=== PATIENT | male | born 1940 | race Caucasian/White ===

== ENCOUNTER 2020-06-15 01:17 | Outpatient (CLI) | payer MEDICARE, SELFPAY ==
[2020-06-17 20:05] LABS: SARS-CoV-2 RNA PCR Negative
== END 2020-06-15 01:18 | disposition home or self-care (01) ==
LOC: ANHCOVIDDT 01:17
PROVIDERS: PCP Family Medicine; Visit Provider Internal Medicine Gastroenterology
DX: Z01.812 Encounter for preprocedural laboratory examination (principal); Z20.828 Contact with and (suspected) exposure to other viral communicable diseases
CPT/HCPCS: 87635; C9803; U0003

== ENCOUNTER 2020-06-19 01:12 | Outpatient (CLI) | payer MEDICARE, SELFPAY ==
[2020-06-19 18:29] LABS: SARS-CoV-2 RNA PCR Negative
== END 2020-06-19 01:13 | disposition home or self-care (01) ==
LOC: ANHCOVIDDT 01:12
PROVIDERS: PCP Family Medicine; Visit Provider Internal Medicine Gastroenterology
DX: Z01.812 Encounter for preprocedural laboratory examination (principal); Z20.828 Contact with and (suspected) exposure to other viral communicable diseases
CPT/HCPCS: 87635; C9803; U0003

== ENCOUNTER 2020-06-21 04:11 | Day surgery (SDC) | payer MEDICARE, SELFPAY ==
[2020-06-06 10:45] VITALS: BMI 37.5
--- NOTE | 2020-06-17 12:28 | SUR.PREOP ---
Spoke with patient's regarding his pending Covid results. I explained that his Covid test has errored twice and it can only be run one more time and it would not result until late tonight. I explained we would not have the results back before he started his prep and there was a potential that the result would error again resulting in us cancelling his procedure after he prepped. The stated that him prepping and then the procedure cancelling would not make him happy. I explained to her that I would contact the Dr. Matos's office and see if we could get him on the schedule for Wednesday which would mean he would need to have another Covid test tomorrow. The said that would for him. I told her I would contact the office and one of us would call her or her back with the new information.
[2020-06-21 09:33] LABS: Glucose Point of Care 178 (65-105)
[2020-06-21 09:38] VITALS: BP 121/60; PULSE 75; RESP 22; TEMP 36.1; O2SAT 98; BMI 37.0
[2020-06-21] MEDS: LACTATED RINGERS 1,000 ML 150 ML IV CONT (09:47)
--- NOTE | 2020-06-21 10:23 | WPDANESEPPF ---
Anes - Initial Pre Proc Eval Procedure: Operation Date: 06/21/20 10:30 Proposed Procedures p Screening Colonoscopy - Raciel Matos MD Date/Time: 06/21/20 10:23 Surgeon: Raciel Matos MD Pre Op Diagnosis: neoplasm screening Patient Data Age: 80 Gender: M Height: 5 ft 2 in Weight: 91.8 kg Last Vital Signs Temp 97 F L 06/21/20 09:38 Pulse 75 06/21/20 09:38 Resp 22 H 06/21/20 09:38 BP 121/60 06/21/20 09:38 Pulse Ox 98 06/21/20 09:38 Allergies Allergy/AdvReac Type Severity Reaction Status Date / Time No Known Allergies Allergy Verified 06/21/20 09:27 Home Medications Medication Instructions Recorded Confirmed Type allopurinol 100 mg PO DAILY 06/06/20 06/21/20 History amlodipine 5 mg PO DAILY 06/06/20 06/21/20 History atorvastatin 40 mg PO DAILY 06/06/20 06/21/20 History calcitriol 0.25 mcg PO DAILY 06/06/20 06/21/20 History carvedilol 25 mg PO BID 06/06/20 06/21/20 History docusate sodium [Stool Softener] 100 mg PO DAILY 06/06/20 06/06/20 History ergocalciferol (vitamin D2) 1,250 mcg PO WEEKLY 06/06/20 06/21/20 History furosemide 40 mg PO DAILY 06/06/20 06/21/20 History insulin glargine [Lantus Solostar 30 unit SUBCUT QPM 06/06/20 06/21/20 History U-100 Insulin] insulin lispro [Humalog KwikPen 20 unit SUBCUT TID 06/06/20 06/21/20 History Insulin] metolazone 2.5 mg PO DAILY 06/06/20 06/21/20 History multivit with min-folic acid 1 mg PO DAILY 06/06/20 06/21/20 History [Adult One Daily Multivitamin] oxybutynin chloride 10 mg PO DAILY 06/06/20 06/21/20 History polyethylene glycol 3350 [Miralax] 17 g PO DAILY 06/06/20 06/06/20 History Laboratory Tests 06/21/20 09:29 POC Capillary Glucose 178 mg/dl H mg/dl (65-105) Patient hx anesthesia problems: none Family hx anesthesia problems: none [facility] Past Medical History Medical History (Updated 06/21/20 @ 10:23 by Alin Stephen MD) CAD (coronary artery disease) Congestive heart failure (CHF) Diabetes Hypertension SHAKA (obstructive sleep apnea) Social History Social History Smoking packs per day: 1 Smoking cigarettes per day: 20.0 Years smoked: 46 Smoking pack-years: 46.00 Smoking status: Former smoker Tobacco type: cigarettes Alcohol intake: never Living arrangements: with family Spiritual care concerns: No Anes - Eval Final PreProcedure Day of Procedure 06/21/20 10:23 Patient weight: obese Heart: regular rate and rhythm Lungs: clear to auscultation Airway: Mallampati scale class III Neurological: alert and oriented Last oral intake: >/= 8 hours ASA classification: IV Emergent: no Anesthetic plan: proceed Anesthesia type and monitoring: general GIVS and standard monitoring Informed Consent: The patient's anesthetic plan and its attendant risks and benefits were discussed with the patient/family/POA. Questions were solicited and answers provided to the satisfaction of the patient/family/POA.
[2020-06-21 10:47] VITALS: BP 89/53; PULSE 76; RESP 16; O2SAT 95
--- NOTE | 2020-06-21 10:47 | P.HP_ITS ---
History of Present Illness History of Present Illness Consent: Risks, benefits, and alternatives have been discussed and questions answered. Patient agrees to proceed with procedure. Chief complaint: neoplasm screening Narrative: Zay Martin is a 80 year old male With a history of colon cancer [facility] Past Medical History Medical History CAD (coronary artery disease) Congestive heart failure (CHF) Diabetes Hypertension SHAKA (obstructive sleep apnea) Social History Social History Smoking packs per day: 1 Smoking cigarettes per day: 20.0 Years smoked: 46 Smoking pack-years: 46.00 Smoking status: Former smoker Tobacco type: cigarettes Alcohol intake: never Living arrangements: with family Spiritual care concerns: No Meds Home Medications and Allergies Home Medications Medication Instructions Recorded Confirmed Type allopurinol 100 mg PO DAILY 06/06/20 06/21/20 History amlodipine 5 mg PO DAILY 06/06/20 06/21/20 History atorvastatin 40 mg PO DAILY 06/06/20 06/21/20 History calcitriol 0.25 mcg PO DAILY 06/06/20 06/21/20 History carvedilol 25 mg PO BID 06/06/20 06/21/20 History docusate sodium [Stool Softener] 100 mg PO DAILY 06/06/20 06/06/20 History ergocalciferol (vitamin D2) 1,250 mcg PO WEEKLY 06/06/20 06/21/20 History furosemide 40 mg PO DAILY 06/06/20 06/21/20 History insulin glargine [Lantus Solostar 30 unit SUBCUT QPM 06/06/20 06/21/20 History U-100 Insulin] insulin lispro [Humalog KwikPen 20 unit SUBCUT TID 06/06/20 06/21/20 History Insulin] metolazone 2.5 mg PO DAILY 06/06/20 06/21/20 History multivit with min-folic acid 1 mg PO DAILY 06/06/20 06/21/20 History [Adult One Daily Multivitamin] oxybutynin chloride 10 mg PO DAILY 06/06/20 06/21/20 History polyethylene glycol 3350 [Miralax] 17 g PO DAILY 06/06/20 06/06/20 History Allergies Allergy/AdvReac Type Severity Reaction Status Date / Time No Known Allergies Allergy Verified 06/21/20 09:27 Vital Signs Vital Signs - 24 hr 06/21/20 09:38 Temperature 36.1 C L Pulse Rate 75 Respiratory Rate 22 H Blood Pressure 121/60 Pulse Oximetry 98 Exam Resp: Auscultation: clear to auscultation bilaterally Cardio: Rate: regular rate Rhythm: regular rhythm GI: GI Palp: Yes Soft to palpation and No Tenderness to palpation present (GI) Assessment and Plan Assessment and plan (1) Colon cancer screening: Code(s): Z12.11 - Encounter for screening for malignant neoplasm of colon Status: Acute Assessment and Plan: Colonoscopy with possible biopsy or polypectomy or cautery or injection of substances.
[2020-06-21 10:57] VITALS: BP 91/59; PULSE 73; RESP 16; O2SAT 97
[2020-06-21 11:00] VITALS: BP 114/61; PULSE 73; RESP 16; O2SAT 97
[2020-06-21 11:07] VITALS: BP 114/66; PULSE 75; RESP 18; O2SAT 97
[2020-06-21 11:08] LABS: Glucose Point of Care 171 (65-105)
== END 2020-06-21 11:31 | disposition home or self-care (01) ==
PROVIDERS: PCP Internal Medicine; Visit Provider Internal Medicine Gastroenterology
PROC: 0DJD8ZZ Inspection of Lower Intestinal Tract, Via Natural or Artificial Opening Endoscopic (ICD-10-PCS; CPT 45378; principal; 2020-06-21 10:30)
DX: Z12.11 Encounter for screening for malignant neoplasm of colon (principal); D12.4 Benign neoplasm of descending colon; Z85.038 Personal history of other malignant neoplasm of large intestine; Z98.0 Intestinal bypass and anastomosis status; Z90.49 Acquired absence of other specified parts of digestive tract; I25.10 Atherosclerotic heart disease of native coronary artery without angina pectoris; I11.0 Hypertensive heart disease with heart failure; I50.9 Heart failure, unspecified; E11.9 Type 2 diabetes mellitus without complications; G47.33 Obstructive sleep apnea (adult) (pediatric); Z87.891 Personal history of nicotine dependence; Z79.4 Long term (current) use of insulin; E66.9 Obesity, unspecified; Z68.37 Body mass index [BMI] 37.0-37.9, adult
CPT/HCPCS: 45380; 45385; 88305; J2704; J7120

== ENCOUNTER 2022-12-21 08:00 | Outpatient (CLI) | payer MEDICARE, SELFPAY ==
--- NOTE | ~2022-12-21 | US_ITS ---
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 COMPARISON: None. FINDINGS: Right and left brachial artery pressures of 134 mm Hg and 137 mm Hg, respectively, are concordant (no rmal difference <= 30 mmHg). The right ankle-brachial index (BILL) is 0.70 (normal >= 0.9-1) raised only upon pressures in the righ t dorsalis pedis artery with right posterior tibial artery unable to be occluded. The right great toe -brachial index (TBI) is 0.10 (normal >= 0.6-0.8). Arterial waveforms are biphasic with brisk systoli c upstrokes throughout the arteries of the right lower limb. The left BILL is 1.31 basically upon pressures in the left dorsalis pedis artery with no dopplerable p ulse in the left posterior tibial artery. The left TBI is 0.04. Arterial waveforms are biphasic with brisk systolic upstrokes at the left common femoral artery. Biphasic waveforms with parvus and tardus waveforms in the left superficial and popliteal arteries. Additional parvus and tardus waveforms in the left posterior tibial and dorsalis pedis arteries becoming nearly monophasic more distally on col or Doppler imaging. IMPRESSION: 1. Arterial occlusive disease to bilateral lower limbs with moderately decreased right BILL and severe ly decreased bilateral TBIs with parvus and tardus waveforms becoming nearly monophasic in the left p osterior tibial and dorsalis pedis arteries. Reviewed, dictated and finalized at location A. IMPRESSION: 1. Arterial occlusive disease to bilateral lower limbs with moderately decrease d right BILL and severely decreased bilateral TBIs with parvus and tardus wavefo freeman becoming nearly monophasic in the left posterior tibial and dorsalis pedis arteries.
== END 2022-12-21 08:01 | disposition home or self-care (01) ==
PROVIDERS: PCP Internal Medicine; Visit Provider Podiatrist Foot & Ankle Surgery
DX: I73.9 Peripheral vascular disease, unspecified (principal)
CPT/HCPCS: 93923